=== PATIENT | male | born 2000 | race Caucasian/White ===

== ENCOUNTER 2020-06-03 09:56 | Outpatient (REF) | payer MEDICAID, SELFPAY | END 2020-06-03 09:57 | disposition home or self-care (01) | LOC: HO.LAB 09:56 | PROVIDERS: Visit Provider Internal Medicine | DX: Z20.828 Contact with and (suspected) exposure to other viral communicable diseases (principal) | CPT/HCPCS: C9803; U0003 ==

== ENCOUNTER 2023-10-09 21:44 | Emergency (ER) | payer OTHER, SELFPAY ==
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
[2023-10-09 22:03] VITALS: BP 126/74; PULSE 71; O2SAT 97
[2023-10-09 22:11] VITALS: BP 145/70; PULSE 59; RESP 18; TEMP 36.5; O2SAT 98
[2023-10-09 22:13] VITALS: BMI 32.5
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
[2023-10-10 00:47] VITALS: BP 191/88; PULSE 72; RESP 18; TEMP 36.6; O2SAT 98
[2023-10-10] MEDS: Cyclobenzaprine HCl 5 MG TABLET PO (02:22)
[2023-10-10] MEDS: Acetaminophen 325 MG TABLET 975 MG PO (02:22)
== END 2023-10-10 03:31 | disposition home or self-care (01) ==
PROVIDERS: Emergency Provider Emergency Medicine
DX: S01.01XA Laceration without foreign body of scalp, initial encounter (principal); T23.172A Burn of first degree of left wrist, initial encounter; T31.0 Burns involving less than 10% of body surface; M54.2 Cervicalgia; R51.9 Headache, unspecified; V43.52XA Car driver injured in collision with other type car in traffic accident, initial encounter; Y93.9 Activity, unspecified; Y92.410 Unspecified street and highway as the place of occurrence of the external cause; Y99.8 Other external cause status; Z79.899 Other long term (current) drug therapy
CPT/HCPCS: 70450; 72125; 99284